=== PATIENT | female | born 1980 | race Caucasian/White ===

== ENCOUNTER → 2016-10-03 | Outpatient (CLI) | payer OTHER ==
[~2016-10-03] MED LIST: 'XANAX0.25 MG PO; AMOXIL500 MG PO; CELEXA40 MG PO; CORTISPORIN SUS10 ML OT; EFFEXOR XR150 MG PO; LEVEMIR10 ML IJ; LEVOTHYROXIN0.175 MG PO; MICRONASE5 MG PO; Metformin Hydr500 MG PO; NOVOLOG 70/30 M10 ML SC; PERCOCET 325 MG1 TA2 PO; ZYRTEC-D 5 MG-11 TE1 PO
== END | disposition home or self-care (01) ==
LOC: RESCLI 08:31
DX: E66.01 Morbid (severe) obesity due to excess calories (principal); J45.909 Unspecified asthma, uncomplicated; E11.9 Type 2 diabetes mellitus without complications; F41.9 Anxiety disorder, unspecified

== ENCOUNTER → 2016-10-16 | Outpatient (CLI) | payer OTHER | END | disposition home or self-care (01) | LOC: RESCLI 01:08 | DX: E66.01 Morbid (severe) obesity due to excess calories (principal); J45.909 Unspecified asthma, uncomplicated; E11.9 Type 2 diabetes mellitus without complications; F41.9 Anxiety disorder, unspecified ==

== ENCOUNTER → 2016-12-04 | Outpatient (CLI) | payer OTHER | END | disposition home or self-care (01) | LOC: RESCLI 02:23 | DX: E66.9 Obesity, unspecified (principal); E11.9 Type 2 diabetes mellitus without complications; E03.9 Hypothyroidism, unspecified; J45.909 Unspecified asthma, uncomplicated; F41.9 Anxiety disorder, unspecified ==